=== PATIENT | male | born 1990 | race Caucasian/White ===

== ENCOUNTER 2022-07-16 04:36 | Emergency (ER) | payer MEDICAID ==
[~2022-07-16] VITALS: Ht 182.9 cm; Wt 81.6 kg
--- NOTE | 2022-07-16 05:00 | NUR ---
BIB [facility] FOR HEAD INJURY S/P FALL BACKWARD. PATIENT IS AAOX4. ABLE TO MAKE NEEDS KNOWN. AMBULATORY. PLACED COMFORTABLY IN BED. VITALS CHECKED.
[2022-07-16] MEDS ORDERED: TDAP [DIPH/PERTUSSIS/TET] 0.5 ML VIAL IM ONE ×2 (05:30→05:36)
--- NOTE | 2022-07-16 05:41 | NUR ---
WHEELED PATIENT TO CT SCAN
[2022-07-16 05:44] LABS: BASOPHILS % (AUTO) 0.3 % (0.0-2.0); HEMATOCRIT 41 % (39-51); HEMOGLOBIN 13.9 g/dL (13.5-17.5); LYMPHOCYTES # (AUTO) 1.6 K/uL (0.8-4.8); LYMPHOCYTES % (AUTO) 24.5 % (20.0-44.0); MEAN CORPUSCULAR HGB CONC 34 g/dl (31.0-36.0); MEAN CORPUSCULAR VOLUME 93 fL (80-96); MONOCYTES # (AUTO) 0.7 K/uL (0.1-1.30); MONOCYTES % (AUTO) 9.7 % (2.0-12.0); NEUTROPHILS # (AUTO) 4.2 K/uL (1.8-8.9); NEUTROPHILS % (AUTO) 62.5 % (43.0-81.0); PLATELET COUNT (AUTO) 219 K/uL (150-450); RED BLOOD CELL COUNT(AUTO) 4.36 MIL/uL (4.5-6.0); WHITE BLOOD COUNT (AUTO) 6.7 K/uL (4.3-11.0)
[2022-07-16 06:45] LABS: ALANINE AMINOTRANSFERASE 39 U/L (12-78); ALBUMIN 3.5 g/dL (3.4-5.0); ALCOHOL, BLOOD < 3 mg/dL (0-0); ALKALINE PHOSPHATASE 59 U/L (46-116); ASPARTATE AMINOTRANSFERASE 22 U/L (15-37); BILIRUBIN,TOTAL 0.4 mg/dL (0.2-1.0); CALCIUM, SERUM 8.8 mg/dL (8.5-10.1); CARBON DIOXIDE 36 mmol/L (21-32); CHLORIDE 106 mmol/L (98-107); GLUCOSE 97 mg/dL (74-106); SODIUM SERUM 143 mmol/L (136-145); TOTAL PROTEIN, SERUM 6.8 g/dL (6.4-8.2); UREA NITROGEN, BLOOD 18 mg/dL (7-18)
--- NOTE | 2022-07-16 07:36 | NUR ---
REPORT GIVEN TO GURWINDER DEVLIN
--- NOTE | 2022-07-16 08:43 | NUR ---
[facility] [phone] ASKED FOR TRAUMA TRANSFER FORM TO BE FAXED TO [phone]
--- NOTE | 2022-07-16 08:50 | NUR ---
PT SLEEPING IN BED, SIGNIFICANT OTHER AT BEDSIDE; PT AROUSABLE, NOT IN ACUTE DISTRESS.
--- NOTE | 2022-07-16 09:50 | NUR ---
[facility] SPEAKING WITH DR. ZEE.
--- NOTE | 2022-07-16 09:57 | NUR ---
CALLED [facility] TRANSFER [facility] [phone] [place] ONLY TAKING LIFE THREATENING, ECMO, TRANSPLANTS, SOME PEDS CASE BY CASE BASIS; OTHERWISE NOT ACCEPTING.
--- NOTE | 2022-07-16 10:04 | NUR ---
[place] [facility] [phone] [place], CLOSED DUE TO CAPACITY.
[2022-07-16] MEDS ORDERED: ACET-868 PO (10:48)
--- NOTE | 2022-07-16 11:15 | NUR ---
Patient discharged to home in stable condition. Written and verbal after care instructions given. Patient verbalizes understanding of instruction.
[2022-07-16 11:43] VITALS: BP 145/80
[2022-07-18] MEDS ORDERED: ALBUTEROL FS 2.5 MG/3 ML VIAL.NEB ONE (16:00)
== END 2022-07-16 11:44 | disposition home or self-care (01) ==
LOC: ER 04:47
DX: S00.03XA Contusion of scalp, initial encounter (principal); F41.9 Anxiety disorder, unspecified; F32.A Depression, unspecified; W18.30XA Fall on same level, unspecified, initial encounter; Y93.89 Activity, other specified; Y92.89 Other specified places as the place of occurrence of the external cause; Y99.8 Other external cause status
CPT/HCPCS: 99284; 90471; 90715; 72125; 70450; 85025; 36415; 80053; 85730; 80320; A6403; G0480